=== PATIENT | female | born 1970 | race Two or more races ===

== ENCOUNTER 2020-12-05 08:59 | Emergency (ER) | payer OTHER ==
[2020-12-05 09:12] VITALS: BMI 27.3
[2020-12-05] MEDS ORDERED: KETOROLAC TROMETHAMINE 30 MG/1 ML VIAL IM ONE (09:34)
[2020-12-05] MEDS ORDERED: diazePAM 2 MG TABLET PO ONE (09:34)
[2020-12-05] MEDS ORDERED: diazePAM 2 MG TABLET ONE (09:36)
[2020-12-05] MEDS ORDERED: KETOROLAC TROMETHAMINE 30 MG/1 ML VIAL ONE (09:37)
[2020-12-05] MEDS ORDERED: LIDOCAINE 5% TOPICAL PATCH TP ONE (11:41)
[2020-12-05] MEDS ORDERED: LIDOCAINE 5% TOPICAL PATCH ONE (11:50)
[2020-12-05 15:15] VITALS: BP 131/93; PULSE 85; TEMP 97.8
[2020-12-05] MEDS ORDERED: LIDOCAINE PATCH REMOVAL MC SCH (22:00)
== END 2020-12-05 15:48 | disposition home or self-care (01) ==
LOC: JER 08:59
PROC: 3E0233Z Introduction of Anti-inflammatory into Muscle, Percutaneous Approach (ICD-10-PCS; principal; 2020-12-05)
DX: M54.42 Lumbago with sciatica, left side (principal)
CPT/HCPCS: 72100-TC-FY; 99284-25

== ENCOUNTER 2020-12-10 14:07 | Emergency (ER) | payer OTHER ==
[2020-12-10 14:21] VITALS: BP 111/75; PULSE 73; TEMP 98.2; BMI 31.1
[2020-12-10] MEDS ORDERED: METHOCARBAMOL 500 MG TABLET PO ONE (14:42)
[2020-12-10] MEDS ORDERED: LIDOCAINE 5% TOPICAL PATCH TP ONE (14:42)
[2020-12-10] MEDS ORDERED: METHOCARBAMOL 500 MG TABLET ONE (14:47)
[2020-12-10] MEDS ORDERED: LIDOCAINE 5% TOPICAL PATCH ONE (14:47)
[2020-12-10] MEDS ORDERED: morphine CARPU-JECT 2 MG/1 ML DISP.SYRIN IM ONE (16:48)
[2020-12-10] MEDS ORDERED: MORPHINE SULFATE 2 MG/ML VIAL ONE (17:05)
== END 2020-12-10 17:29 | disposition home or self-care (01) ==
LOC: JER 14:07 → JERFT 14:07
PROC: 3E023NZ Introduction of Analgesics, Hypnotics, Sedatives into Muscle, Percutaneous Approach (ICD-10-PCS; principal; 2020-12-10)
DX: M54.42 Lumbago with sciatica, left side (principal)
CPT/HCPCS: 72131-TC; 99285-25

== ENCOUNTER 2022-12-25 03:56 | Day surgery (SDC) | payer OTHER ==
[2022-12-24 09:52] VITALS: BMI 26.4
[2022-12-25] MEDS ORDERED: BUPIVACAINE HCL/PF 0.5% (5MG/ML) 10 ML VIAL ONE (07:41)
[2022-12-25] MEDS ORDERED: TRIAMCINOLONE ACET 40MG/1ML VIAL ONE ×2 (07:41→13:37)
[2022-12-25] MEDS ORDERED: LIDOCAINE HCL/PF 1% SDV 5ML VIAL ONE (07:41)
[2022-12-25] MEDS ORDERED: ACETAMINOPHEN 500 MG TABLET (FP) PO PRN (10:45)
[2022-12-25 14:11] VITALS: RESP 20
[2022-12-25 15:23] VITALS: BP 130/80; PULSE 70; TEMP 98.2
== END 2022-12-25 14:45 | disposition home or self-care (01) ==
LOC: JASU-SURG 03:56
PROVIDERS: ATTEND Pain Medicine Pain Medicine
PROC: 3E0U3BZ Introduction of Anesthetic Agent into Joints, Percutaneous Approach (ICD-10-PCS; 2022-12-25)
PROC: 3E0U33Z Introduction of Anti-inflammatory into Joints, Percutaneous Approach (ICD-10-PCS; principal; 2022-12-25 13:42)
DX: M53.3 Sacrococcygeal disorders, not elsewhere classified (principal)
CPT/HCPCS: 76000-TC-FY

== ENCOUNTER 2023-03-16 01:25 | Observation (INO) | payer OTHER ==
[2023-03-16 01:47] VITALS: BMI 25.9
[2023-03-16] MEDS ORDERED: ACETAMINOPHEN 325 MG TABLET (FP) PO ONE (02:39)
[2023-03-16] MEDS ORDERED: LIDOCAINE 5% TOPICAL PATCH TP ONE (02:39)
[2023-03-16] MEDS ORDERED: ACETAMINOPHEN 325 MG TABLET (FP) ONE (03:44)
[2023-03-16] MEDS ORDERED: LIDOCAINE 5% TOPICAL PATCH ONE (03:44)
[2023-03-16 03:59] LABS: BASO % 0.9 % (0-2.0); EOS % 0.3 % (0-4.5); HEMATOCRIT 44.2 % (32.4-45.2); LYMPH % 14.2 % (8-40); MCH 26.9 pg (25.7-33.7); MCHC 33.9 g/dl (32.0-36.0); MEAN CELL VOLUME 79.5 fl (80-96); MEAN PLT VOLUME 8.4 fl (7.5-11.1); MONO % 9.2 % (3.8-10.2); NEUT % 75.4 % (42.8-82.8); PLATELET COUNT 271 10^3/uL (134-434); RBC 5.56 M/mm3 (3.60-5.2); RDW 13.5 % (11.6-15.6); WHITE BLOOD COUNT 9.7 K/mm3 (4.0-10.0)
[2023-03-16 04:01] LABS: EPI CELLS 2 /uL (0-25.1); HYALINE CASTS 0 /uL (0-3.1); URINE APPEARANCE CLEAR; URINE BACTERIA 52 /uL (0-1359); URINE BILIRUBIN NEGATIVE (NEGATIVE); URINE COLOR YELLOW; URINE GLUCOSE (UA) NEGATIVE (NEGATIVE); URINE KETONE NEGATIVE (NEGATIVE); URINE LEUK ESTERASE NEGATIVE (NEGATIVE); URINE NITRITE NEGATIVE (NEGATIVE); URINE PROTEIN NEGATIVE (NEGATIVE); URINE RBC 13 /uL (0-23.9); URINE UROBILINOGEN 0.2 mg/dL (0.2-1.0); URINE WBC 1 /uL (0-25.8)
[2023-03-16 04:02] LABS: POTASSIUM 4.5 mmol/L (3.5-5.1)
[2023-03-16 04:05] LABS: BLOOD UREA NITROGEN 10.4 mg/dL (7-18); CALCIUM 8.7 mg/dL (8.5-10.1)
[2023-03-16 04:06] LABS: ALBUMIN 3.6 g/dl (3.4-5.0)
[2023-03-16 04:09] LABS: CREATININE 0.8 mg/dL (0.55-1.3)
[2023-03-16 04:10] LABS: BILIRUBIN,TOTAL 0.6 mg/dL (0.2-1); TOT PROT 7.3 g/dl (6.4-8.2)
[2023-03-16] MEDS ORDERED: ACETAMINOPHEN 500 MG TABLET (FP) PO PRN (09:37)
[2023-03-16] MEDS ORDERED: NAPROXEN 375 MG TABLET PO PRN (10:11)
[2023-03-16] MEDS: NAPROXEN 375 MG TABLET PO SCH ×2 (11:44→21:39)
[2023-03-17] MEDS ORDERED: NAPROXEN 375 MG TABLET PO SCH (08:53)
[2023-03-17] MEDS ORDERED: methylPREDNISolone 4 MG TABLET PO ONE (10:00)
[2023-03-17] MEDS: PANTOPRAZOLE 40 MG TABLET PO SCH (10:23)
[2023-03-17] MEDS: NAPROXEN 500 MG TABLET PO SCH ×2 (10:33→21:38)
[2023-03-17 11:19] VITALS: RESP 18
[2023-03-17 11:29] LABS: BASO % 1.1 % (0-2.0); EOS % 1.7 % (0-4.5); HEMATOCRIT 42.1 % (32.4-45.2); HEMOGLOBIN 14.4 GM/dL (10.7-15.3); LYMPH % 35.2 % (8-40); MCH 27.1 pg (25.7-33.7); MCHC 34.1 g/dl (32.0-36.0); MEAN CELL VOLUME 79.7 fl (80-96); MEAN PLT VOLUME 8.6 fl (7.5-11.1); MONO % 9.5 % (3.8-10.2); NEUT % 52.5 % (42.8-82.8); PLATELET COUNT 287 10^3/uL (134-434); RBC 5.29 M/mm3 (3.60-5.2); RDW 13.4 % (11.6-15.6); WHITE BLOOD COUNT 6.5 K/mm3 (4.0-10.0)
[2023-03-17 11:44] LABS: POTASSIUM 3.8 mmol/L (3.5-5.1)
[2023-03-17 11:47] LABS: CALCIUM 8.7 mg/dL (8.5-10.1)
[2023-03-17 11:48] LABS: ALBUMIN 3.4 g/dl (3.4-5.0); BLOOD UREA NITROGEN 13.2 mg/dL (7-18); MAGNESIUM 2.2 mg/dL (1.8-2.4)
[2023-03-17 11:50] LABS: CREATININE 0.8 mg/dL (0.55-1.3); PHOSPHOROUS 2.7 mg/dL (2.5-4.9)
[2023-03-17 11:52] LABS: BILIRUBIN,TOTAL 0.4 mg/dL (0.2-1); TOT PROT 6.8 g/dl (6.4-8.2)
[2023-03-18] MEDS ORDERED: ENOXAPARIN NA (PORCINE) 40 MG/0.4 ML DISP.SYRIN SQ SCH (10:00)
[2023-03-18] MEDS ORDERED: methylPREDNISolone 4 MG TABLET PO ONE (10:00)
[2023-03-18] MEDS: PANTOPRAZOLE 40 MG TABLET PO SCH (10:28)
[2023-03-18] MEDS: NAPROXEN 500 MG TABLET PO SCH (10:29)
[2023-03-18 13:11] VITALS: BP 106/73; PULSE 88; TEMP 98.4
== END 2023-03-18 13:40 | disposition home or self-care (01) ==
LOC: JER 01:25 → JERBED 09:44 → J5S 12:23
PROVIDERS: ADMIT Internal Medicine; ATTEND Internal Medicine
PROC: 3E023GC Introduction of Other Therapeutic Substance into Muscle, Percutaneous Approach (ICD-10-PCS; principal; 2023-03-16)
DX: M54.30 Sciatica, unspecified side (principal); M53.86 Other specified dorsopathies, lumbar region; G89.29 Other chronic pain; Z90.49 Acquired absence of other specified parts of digestive tract; Z29.8 Encounter for other specified prophylactic measures; Z88.0 Allergy status to penicillin
CPT/HCPCS: 0241U-QW; 36415; 72131-TC; 72158-TC; 80053; 81003; 83735; 84100; 84703; 85025; 87086; 93005; 93010; 96372; 97116-GP; 97161-GP; 99285-25; A9579; G0378

== ENCOUNTER 2024-01-09 23:40 | Emergency (ER) | payer OTHER ==
[2024-01-09 23:52] VITALS: TEMP 98.3; BMI 25.1
[2024-01-10] MEDS ORDERED: KETOROLAC TROMETHAMINE 30 MG/1 ML VIAL ONE (00:30)
[2024-01-10] MEDS: KETOROLAC TROMETHAMINE 30 MG/1 ML VIAL IM ONE (00:34)
[2024-01-10 01:48] VITALS: BP 130/85; PULSE 80; RESP 19
== END 2024-01-10 01:49 | disposition home or self-care (01) ==
LOC: JER 23:40
PROC: 3E0233Z Introduction of Anti-inflammatory into Muscle, Percutaneous Approach (ICD-10-PCS; principal; 2024-01-10)
DX: R10.32 Left lower quadrant pain (principal); N83.202 Unspecified ovarian cyst, left side
CPT/HCPCS: 76830-TC; 99284-25